=== PATIENT | female | born 1975 ===

== ENCOUNTER → 2019-11-28 | Outpatient (CLI) | payer BC | END | disposition home or self-care (01) | LOC: LAB SHORT 11:34 → LAB 11:34 | DX: N39.0 Urinary tract infection, site not specified (principal) | CPT/HCPCS: 87086 ==

== ENCOUNTER → 2023-03-31 | Outpatient (CLI) | payer BC | END | disposition home or self-care (01) | LOC: LAB 12:00 → LAB SHORT 12:00 | DX: N30.00 Acute cystitis without hematuria (principal) | CPT/HCPCS: 87086 ==